=== PATIENT | male | born 1960 | race Caucasian/White ===

== ENCOUNTER 2018-03-19 13:43 | Emergency (ER) | payer SELFPAY ==
--- NOTE | 2018-03-19 14:12 | RAD REPORT ---
EXAM DESCRIPTION: CT - Ct Stroke Brain Wo Cont - 03/19/2018 2:02 pm CLINICAL HISTORY: Left numbness Numbness COMPARISON: None. TECHNIQUE: Computed axial tomography of the head was obtained. IV contrast was not requested. All CT scans are performed using dose optimization technique as appropriate and may include automated exposure control or mA/KV adjustment according to patient size. FINDINGS: An intracranial bleed is not seen . The ventricles are normal in caliber. No extra-axial fluid collection is noted. Small low-density within the left basal ganglia probably re presents old lacunar infarction. Fluid within the sinuses/ mastoids is not seen. IMPRESSION: No acute intracranial abnormality is seen. If patient's symptoms persist MRI of the bra in would be recommended. Exam was discussed in the emergency room doctor Raul approximately 1:55 p.m. 03/19/2018
[2018-03-19 14:20] LABS: Protime INR 0.92
[2018-03-19 14:28] LABS: Absolute Monocytes 0.6 K/uL (0.1-1.3); Absolute Neutrophil 7.2 K/uL (1.8-8.0); Basophils % 0.3 % (0-1.3); Eosinophils % 2.6 % (0-4.4); Hematocrit 47.5 % (39.6-49.0); Lymphocytes % 20.1 % (15.3-44.8); MCH 32.1 pg (27.0-35.0); MPV 9.7 fL (7.6-11.3); Monocytes % 6.1 % (3.3-12.3); RBC Red Blood Cell Count 5.11 M/uL (4.33-5.43)
[2018-03-19 14:30] LABS: ALT/SGPT 25 U/L (12-78); AST/SGOT 15 U/L (15-37); Albumin 3.6 g/dL (3.4-5.0); Alkaline Phosphatase 90 U/L (45-117); BUN Blood Urea Nitrogen 19 mg/dL (7-18); Bicarbonate 28 mmol/L (21-32); Bilirubin Direct < 0.1 mg/dL (0-0.2); Bilirubin Total 0.2 mg/dL (0.2-1.0); Glucose Level 124 mg/dL (74-106); NT PRO-BNP 250 pg/mL (<125); Potassium 4.1 mmol/L (3.5-5.1); Protein, Total 7.7 g/dL (6.4-8.2); Sodium Level 141 mmol/L (136-145); Troponin (Emerg Dept Use Only) < 0.02 ng/mL (0.0-0.045)
--- NOTE | 2018-03-19 14:32 | RAD REPORT ---
EXAM DESCRIPTION: Daniela Single View03/19/2018 2:21 pm CLINICAL HISTORY: Chest pain COMPARISON: none FINDINGS: The lungs appear clear of acute infiltrate. The heart is normal size IMPRESSION: No acute abnormalities displayed
--- NOTE | 2018-03-19 15:38 | EKG ---
Test Date: 2018-03-19 Test Time: 14:00:01 City Driver: JACE MEASUREMENT RESULTS: Intervals: Rate: 62 VA: 158 QRSD: 90 QT: 384 QTc: 389 [place]: P: 60 VA: 158 QRS: 79 T: 64 INTERPRETIVE STATEMENTS: Normal sinus rhythm Normal ECG No previous ECG available for comparison Electronically Signed On 03-19-18 15:37:55 CDT by Elio Parks
--- NOTE | 2018-03-19 16:16 | ER ---
Nurse's Notes [facility] Name: Sanchez Pope Age: 58 yrs Sex: Male : 1960 Arrival Date: 03/19/2018 Time: 13:43 Bed 13 Private MD: Diagnosis: Essential (primary) hypertension;Transient cerebral ischemic attack, unspecified Presentation: 03/19 13:43 Presenting complaint: Patient states: "I just started feeling some numbness to my left aa5 arm and left side of face about 15 minutes ago". Pt denies weakness, denies pain. Pt states "I also started slurring just before coming in but it stopped now". Clear speech noted. Pt states "I also had the same symptoms on but it only lasted 3 minutes". 13:43 Transition of care: patient was not received from another setting of care. Onset of aa5 symptoms was March 19, 2018. Risk Assessment: Do you want to hurt yourself or someone else? Patient reports no desire to harm self or others. Care prior to arrival: None. 13:43 Acuity: JONATHON 2 aa5 13:43 Method Of Arrival: Ambulatory aa5 13:45 No acute neurological deficit is noted. Pre-hospital glucose is not applicable to this ph patient. Initial Sepsis Screen: Does the patient meet any 2 criteria? No. Patient's initial sepsis screen is negative. Does the patient have a suspected source of infection? No. Patient's initial sepsis screen is negative. Stroke Activation: Symptom onset < 3 hours Physician: Stroke Attending; Name: ; Notified At: ; Arrived At: Physician: Chief Stroke Resident; Name: ; Notified At: ; Arrived At: Physician: Stroke Resident; Name: ; Notified At: ; Arrived At: Physician: ED Attending; Name: ; Notified At: ; Arrived At: Physician: ED Resident; Name: ; Notified At: ; Arrived At: Historical: - Allergies: 13:45 Sulfa (Sulfonamide Antibiotics); aa5 - PMHx: 13:45 None; aa5 - PSHx: 13:45 None; aa5 - Immunization history:: Adult Immunizations unknown. - Social history:: The patient lives at home, Smoking status: Patient uses tobacco products, smokes one-half pack cigarettes per day. - Ebola Screening: : No symptoms or risks identified at this time. Screenin:32 Abuse screen: Denies threats or abuse. Denies injuries from another. Nutritional ph screening: No deficits noted. Tuberculosis screening: No symptoms or risk factors identified. Fall Risk No fall in past 12 months (0 pts). No secondary diagnosis (0 pts). IV access (20 points). Ambulatory Aid- None/Bed Rest/Nurse Assist (0 pts). Gait- Normal/Bed Rest/Wheelchair (0 pts) Mental Status- Oriented to own ability (0 pts). Total Curtis Fall Scale indicates No Risk (0-24 pts). Assessment: 14:15 General: Appears in no apparent distress. comfortable, Behavior is calm, cooperative, ph appropriate for age. Pain: Denies pain. Neuro: Level of Consciousness is awake, alert, obeys commands, Oriented to person, place, time, situation, Boiler Tender are equal bilaterally Moves all extremities. Full function Speech is normal, Facial symmetry appears normal, Facial symmetry: tongue is midline, Pupils are PERRLA, Intact Reports numbness of L arm, L side of face, and slurred speech that resolved after arriving to ED. Cardiovascular: Capillary refill < 3 seconds in bilateral fingers Patient's skin is warm and dry. Respiratory: Airway is patent Respiratory effort is even, unlabored, Respiratory pattern is regular, symmetrical. GI: No signs and/or symptoms were reported involving the gastrointestinal system. Derm: Skin is intact, is healthy with good turgor, Skin is pink, warm \\T\\ dry. Musculoskeletal: Circulation, motion, and sensation intact. Range of motion: intact in all extremities. 15:18 Reassessment: Patient appears in no apparent distress at this time. Patient and/or ph family updated on plan of care and expected duration. Pain level reassessed. Patient is alert, oriented x 3, equal unlabored respirations, skin warm/dry/pink. Pt resting quietly, denies pain , numbness, tingling, or weakness, VSS. 15:20 Patient has been NPO before screening. The patient is alert, and able to follow ph commands. The patient does not exhibit slurred or garbled speech. The patient is not exhibiting difficulty speaking. The patient does not exhibit difficulty understanding words. The patient is able to swallow own secretions with no drooling or need for suction. Patient tolerated one teaspoon of water. No drooling, immediate coughing, gurgling, or clearing of the throat was noted. The patient tolerated 90mL of water. No drooling, immediate coughing, gurgling, or clearing of the throat was noted. The patient passed the bedside swallow screening. Oral medications may be given as ordered. Contact Physician for further diet orders. Provider notified of bedside swallow screening results: Fredo Bates MD. Vital Signs: 13:45 Weight 81.65 kg (R); Height 5 ft. 6 in. (167.64 cm) (R); Pain 0/10; aa5 14:15 BP 182 / 78; Pulse 61; Resp 18; Temp 97.8; Pulse Ox 99% on R/A; ph 15:35 BP 175 / 82; Pulse 58; Resp 18; Pulse Ox 96% on R/A; ph 16:35 BP 167 / 80; Pulse 62; Resp 16; Temp 97.5; Pulse Ox 99% on R/A; Pain 0/10; ph 13:45 Body Mass Index 29.05 (81.65 kg, 167.64 cm) aa5 NIH Stroke Scale Scores: 14:15 NIHSS Score: 0 ph 19:26 NIHSS Score: 0 gs ED Course: 13:43 Patient arrived in ED. hj 13:43 Arm band placed on Patient placed in an exam room, on a stretcher. aa5 13:44 Jose Manuel Cota RN is Primary Nurse. hj 13:47 Fredo Bates MD is Attending Physician. gs 13:48 Triage completed. aa5 14:02 CT Stroke Brain w/o Contrast In Process Unspecified. EDMS 14:06 EKG done, by system support technician. reviewed by Fredo Bates MD. at1 14:20 X-ray completed. Portable x-ray completed in exam room. Patient tolerated procedure ml well. 14:21 XRAY Chest (1 view) In Process Unspecified. EDMS 14:35 Hyun Bennett, PAPITO is Primary Nurse. ph 15:33 No provider procedures requiring assistance completed. ph 15:34 Patient has correct armband on for positive identification. Bed in low position. Call ph light in reach. Side rails up X 1. surgery aid on. Pulse ox on. NIBP on. 16:14 Jean-Paul Canales MD is Referral Physician. gs 16:50 Patient did not have IV access during this emergency room visit. ph Administered Medications: No medications were administered Point of Care Testing: Blood Glucose: 13:47 Blood Glucose: 124 mg/dL; aa5 Ranges: Outcome: 16:15 Discharge ordered by . 16:50 Patient left the ED. 16:50 Discharged to home ambulatory, with friend. 16:50 Condition: good 16:50 Discharge instructions given to patient, Instructed on discharge instructions, follow up and referral plans. medication usage, Demonstrated understanding of instructions, follow-up care, medications, Prescriptions given X 1. NIH Stroke Scale - NIH Stroke Score Date: 03/19/2018 Time: 14:15 Total Score = 0 1a. Level of Consciousness (LOC) - 0(Alert) 1b. Level of Consciousness (LOC) (Year \\T\\ Age) - 0(Both) 1c. LOC Commands (Open \\T\\ Closes Eyes/Photo Manager) - 0(Both) 2. Best Gaze (Lateral Gaze Paresis) - 0(Normal) 3. Visual Field Loss - 0(No visual loss) 4. Facial Palsy - 0(Normal) 5a. Left Arm: Motor (10-second hold) - 0(No drift) 5b. Right Arm: Motor (10-second hold) - 0(No drift) 6a. Left Leg: Motor (5-second hold - always test supine) - 0(No drift) 6b. Right Leg: Motor (5-second hold - always test supine) - 0(No drift) 7. Limb Ataxia (finger/nose \\T\\ heel/castro - test with eyes open) - 0(Absent) 8. Sensory Loss (pinprick arms/legs/face) - 0(Normal) 9. Best Language: Aphasia (description/naming/reading) - 0(No aphasia) 10. Dysarthria (speech clarity - read or repeat words) - 0(Normal) 11. Extinction and Inattention (visual/tactile/auditory/spatial/personal) - 0(No abnormality) Initials: NIH Stroke Scale - NIH Stroke Score Date: 03/19/2018 Time: 19:26 Total Score = 0 1a. Level of Consciousness (LOC) - 0(Alert) 1b. Level of Consciousness (LOC) (Year \\T\\ Age) - 0(Both) 1c. LOC Commands (Open \\T\\ Closes Eyes/Photo Manager) - 0(Both) 2. Best Gaze (Lateral Gaze Paresis) - 0(Normal) 3. Visual Field Loss - 0(No visual loss) 4. Facial Palsy - 0(Normal) 5a. Left Arm: Motor (10-second hold) - 0(No drift) 5b. Right Arm: Motor (10-second hold) - 0(No drift) 6a. Left Leg: Motor (5-second hold - always test supine) - 0(No drift) 6b. Right Leg: Motor (5-second hold - always test supine) - 0(No drift) 7. Limb Ataxia (finger/nose \\T\\ heel/castro - test with eyes open) - 0(Absent) 8. Sensory Loss (pinprick arms/legs/face) - 0(Normal) 9. Best Language: Aphasia (description/naming/reading) - 0(No aphasia) 10. Dysarthria (speech clarity - read or repeat words) - 0(Normal) 11. Extinction and Inattention (visual/tactile/auditory/spatial/personal) - 0(No abnormality) Initials: Signatures: Dispatcher [employer] EDMS Candace Juares Audri RN RN aa5 Sherlyn Seymour, corrugator EKG Tat1 Hyun Bennett RN RN ph Jose Manuel Cota RN RN hj Starr, Gregory, MD MD Corrections: (The following items were deleted from the chart) 13:49 13:43 Presenting complaint: Patient states: "I just started feeling some aa5 numbness to my left arm and left side of face about 15 minutes ago". Pt denies weakness, denies pain. aa5 15:31 14:00 General: Appears in no apparent distress. comfortable, Behavior is calm, ph cooperative, appropriate for age, ph 15:31 14:00 Pain: Denies pain. ph ph 15:31 14:00 Neuro: Level of Consciousness is awake, alert, obeys commands, Oriented ph to person, place, time, situation, Boiler Tender are equal bilaterally Moves all extremities. Full function Speech is normal, Facial symmetry appears normal, Facial symmetry: tongue is midline, Pupils are PERRLA, Intact Reports numbness of L arm, L side of face, and slurred speech that resolved after arriving to ED. ph 15:31 14:00 Cardiovascular: Capillary refill < 3 seconds in bilateral fingers ph Patient's skin is warm and dry. ph 15:31 14:00 Respiratory: Airway is patent Respiratory effort is even, unlabored, ph Respiratory pattern is regular, symmetrical, ph 15: 14:00 GI: No signs and/or symptoms were reported involving the gastrointestinal ph system. ph 15:31 14:00 Derm: Skin is intact, is healthy with good turgor, Skin is pink, warm \\T\\ ph dry. ph 15:31 14:00 Musculoskeletal: Circulation, motion, and sensation intact. Range of ph motion: intact in all extremities, ph
--- NOTE | 2018-03-19 16:16 | EDPHYS ---
Physician Documentation [facility] Name: Sanchez Pope Age: 58 yrs Sex: Male : 1960 Arrival Date: 03/19/2018 Time: 13:43 Bed 13 Private MD: ED Physician Fredo Bates HPI: 03/19 19:26 This 58 yrs old Male presents to ER via Ambulatory with complaints of gs numbness to arm and face. 19:26 The patient presents to the emergency department with paresthesias of the left upper gs extremity, left side of the face. 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 Associated signs and symptoms: Pertinent negatives: altered mental status. Severity of symptoms: At their worst the symptoms were moderate in the emergency department the symptoms have resolved and did so just prior to arrival. The patient has experienced similar episodes in the past, a few times. Historical: - Allergies: 13:45 Sulfa (Sulfonamide Antibiotics); aa5 - PMHx: 13:45 None; aa5 - PSHx: 13:45 None; aa5 - Immunization history:: Adult Immunizations unknown. - Social history:: The patient lives at home, Smoking status: Patient uses tobacco products, smokes one-half pack cigarettes per day. - Ebola Screening: : No symptoms or risks identified at this time. ROS: 19:26 All other systems are negative. gs Exam: 19:26 Head/Face: Normocephalic, atraumatic. Eyes: Pupils equal round and reactive to light, gs extra-ocular motions intact. Lids and lashes normal. Conjunctiva and sclera are non-icteric and not injected. Cornea within normal limits. Periorbital areas with no swelling, redness, or edema. ENT: Nares patent. No nasal discharge, no septal abnormalities noted. Tympanic membranes are normal and external auditory canals are clear. Oropharynx with no redness, swelling, or masses, exudates, or evidence of obstruction, uvula midline. Mucous membranes moist. Neck: Trachea midline, no thyromegaly or masses palpated, and no cervical lymphadenopathy. Supple, full range of motion without nuchal rigidity, or vertebral point tenderness. No Meningismus. Chest/axilla: Normal chest wall appearance and motion. Nontender with no deformity. No lesions are appreciated. Cardiovascular: Regular rate and rhythm with a normal S1 and S2. No gallops, murmurs, or rubs. Normal PMI, no JVD. No pulse deficits. Respiratory: Lungs have equal breath sounds bilaterally, clear to auscultation and percussion. No rales, rhonchi or wheezes noted. No increased work of breathing, no retractions or nasal flaring. Abdomen/GI: Soft, non-tender, with normal bowel sounds. No distension or tympany. No guarding or rebound. No evidence of tenderness throughout. Back: No spinal tenderness. No costovertebral tenderness. Full range of motion. Skin: Warm, dry with normal turgor. Normal color with no rashes, no lesions, and no evidence of cellulitis. MS/ Extremity: Pulses equal, no cyanosis. Neurovascular intact. Full, normal range of motion. Psych: Awake, alert, with orientation to person, place and time. Behavior, mood, and affect are within normal limits. 19:26 Constitutional: The patient appears alert, awake. 19:26 Neuro: Orientation: is normal, Mentation: is normal, Memory: is normal, Cranial nerves: CN II- XII are normal as tested, Cerebellar function: normal finger to nose testing, heel to castro testing is normal, Motor: strength is normal, Sensation: no obvious gross deficits, pin prick testing is normal, Gait: is steady. Vital Signs: 13:45 Weight 81.65 kg (R); Height 5 ft. 6 in. (167.64 cm) (R); Pain 0/10; aa5 14:15 BP 182 / 78; Pulse 61; Resp 18; Temp 97.8; Pulse Ox 99% on R/A; ph 15:35 BP 175 / 82; Pulse 58; Resp 18; Pulse Ox 96% on R/A; ph 16:35 BP 167 / 80; Pulse 62; Resp 16; Temp 97.5; Pulse Ox 99% on R/A; Pain 0/10; ph 13:45 Body Mass Index 29.05 (81.65 kg, 167.64 cm) aa5 NIH Stroke Scale Scores: 14:15 NIHSS Score: 0 ph 19:26 NIHSS Score: 0 gs MDM: 14:08 Patient medically screened. 19:26 Data reviewed: vital signs, nurses notes, and as a result, I will discharge patient. ED gs course: ddx cva,tia,paresthesia. ED course: no tpa no stroke, offered admission transfer pt declined. 03/19 14:09 Order name: Basic Metabolic Panel; Complete Time: 15:02 03/19 14:09 Order name: CBC with Diff; Complete Time: 15:02 03/19 14:09 Order name: LFT's; Complete Time: 15:02 03/19 14:09 Order name: Magnesium; Complete Time: 15:02 03/19 14:09 Order name: NT PRO-BNP; Complete Time: 15:02 03/19 14:09 Order name: PT-INR; Complete Time: 15:02 03/19 13:50 Order name: CT Stroke Brain w/o Contrast; Complete Time: 15:02 03/19 14:09 Order name: Troponin (emerg Dept Use Only); Complete Time: 15:02 03/19 14:09 Order name: XRAY Chest (1 view); Complete Time: 15:02 03/19 14:09 Order name: EKG; Complete Time: 14:09 03/19 14:09 Order name: Cardiac monitoring; Complete Time: 14:47 03/19 14:09 Order name: EKG - Nurse/Tech; Complete Time: 14:47 03/19 14:09 Order name: Labs collected and sent; Complete Time: 14:47 03/19 14:09 Order name: O2 Per Protocol; Complete Time: 14:48 03/19 14:09 Order name: O2 Sat Monitoring; Complete Time: 14:48 gs Administered Medications: No medications were administered Point of Care Testing: Blood Glucose: 13:47 Blood Glucose: 124 mg/dL; aa5 Ranges: Critical Glucose Levels:Adult <50 mg/dl or >400 mg/dl <40 mg/dl or >180 mg/dl Disposition: 03/19/18 16:15 Discharged to Home. Impression: Essential (primary) hypertension, Transient cerebral ischemic attack, unspecified. - Condition is Stable. - Discharge Instructions: Hypertension. - Prescriptions for Norvasc 5 mg Oral Tablet - take 1 tablet by ORAL route once daily; 20 tablet. - Medication Reconciliation Form, Thank You Letter, Antibiotic Education, Prescription Opioid Use form. - Follow up: Jean-Paul Canales MD; When: 2 - 3 days; Reason: Re-evaluation by your physician. NIH Stroke Scale - NIH Stroke Score Date: 03/19/2018 Time: 14:15 Total Score = 0 1a. Level of Consciousness (LOC) - 0(Alert) 1b. Level of Consciousness (LOC) (Year \T\ Age) - 0(Both) 1c. LOC Commands (Open \T\ Closes Eyes/System Integration Engineer) - 0(Both) 2. Best Gaze (Lateral Gaze Paresis) - 0(Normal) 3. Visual Field Loss - 0(No visual loss) 4. Facial Palsy - 0(Normal) 5a. Left Arm: Motor (10-second hold) - 0(No drift) 5b. Right Arm: Motor (10-second hold) - 0(No drift) 6a. Left Leg: Motor (5-second hold - always test supine) - 0(No drift) 6b. Right Leg: Motor (5-second hold - always test supine) - 0(No drift) 7. Limb Ataxia (finger/nose \T\ heel/castro - test with eyes open) - 0(Absent) 8. Sensory Loss (pinprick arms/legs/face) - 0(Normal) 9. Best Language: Aphasia (description/naming/reading) - 0(No aphasia) 10. Dysarthria (speech clarity - read or repeat words) - 0(Normal) 11. Extinction and Inattention (visual/tactile/auditory/spatial/personal) - 0(No abnormality) Initials: NIH Stroke Scale - NIH Stroke Score Date: 03/19/2018 Time: 19:26 Total Score = 0 1a. Level of Consciousness (LOC) - 0(Alert) 1b. Level of Consciousness (LOC) (Year \T\ Age) - 0(Both) 1c. LOC Commands (Open \T\ Closes Eyes/System Integration Engineer) - 0(Both) 2. Best Gaze (Lateral Gaze Paresis) - 0(Normal) 3. Visual Field Loss - 0(No visual loss) 4. Facial Palsy - 0(Normal) 5a. Left Arm: Motor (10-second hold) - 0(No drift) 5b. Right Arm: Motor (10-second hold) - 0(No drift) 6a. Left Leg: Motor (5-second hold - always test supine) - 0(No drift) 6b. Right Leg: Motor (5-second hold - always test supine) - 0(No drift) 7. Limb Ataxia (finger/nose \T\ heel/castro - test with eyes open) - 0(Absent) 8. Sensory Loss (pinprick arms/legs/face) - 0(Normal) 9. Best Language: Aphasia (description/naming/reading) - 0(No aphasia) 10. Dysarthria (speech clarity - read or repeat words) - 0(Normal) 11. Extinction and Inattention (visual/tactile/auditory/spatial/personal) - 0(No abnormality) Initials: gs Signatures: Dispatcher [employer] EDMS Ursula Martinez RN RN aa5 Hyun Bennett RN RN ph Bates, MD BETTE Yoo Corrections: (The following items were deleted from the chart) 16:50 16:15 03/19/2018 16:15 Discharged to Home. Impression: Essential (primary) ph hypertension; Transient cerebral ischemic attack, unspecified. Condition is Stable. Forms are Medication Reconciliation Form, Thank You Letter, Antibiotic Education, Prescription Opioid Use. Follow up: Jean-Paul Canales; When: 2 - 3 days; Reason: Re-evaluation by your physician. gs
== END 2018-03-19 16:50 | disposition home or self-care (01) ==
LOC: ER 13:43
DX: G45.9 Transient cerebral ischemic attack, unspecified (principal); I10 Essential (primary) hypertension; F17.220 Nicotine dependence, chewing tobacco, uncomplicated; F17.210 Nicotine dependence, cigarettes, uncomplicated; Z88.2 Allergy status to sulfonamides
CPT/HCPCS: 36415; 70450; 71045; 80048; 80076; 82962; 83735; 83880; 84484; 85025; 85610; 93005; 99284